=== PATIENT | male | born 1965 | race American Indian/Alaskan Native ===

== ENCOUNTER 2017-09-17 23:13 | Emergency (ER) | payer OTHER ==
[2017-09-18 00:25] LABS: Basophils # (Auto) 0.1 K/mm3 (0.0-0.1); Basophils % (Auto) 0.5 % (0.0-1.8); Eosinophils % (Auto) 0.2 % (0.0-4.3); Hemoglobin 10.7 gm/dl (11.8-15.2); Lymphocytes # (Auto) 2.3 K/mm3 (1.2-5.4); Lymphocytes % (Auto) 16.3 % (13.4-35.0); Mean Corpuscular HGB Conc 34 % (32-34); Mean Corpuscular Hemoglobin 30 pg (28-32); Mean Corpuscular Volume 90 fl (84-94); Monocytes # (Auto) 0.8 K/mm3 (0.0-0.8); Platelet Count 215 K/mm3 (140-440); Red Blood Count 3.57 M/mm3 (3.65-5.03); Red Cell Distribution Width 13.4 % (13.2-15.2)
[2017-09-18 00:42] LABS: Alanine Aminotransferase 11 units/L (7-56); Albumin 3.8 g/dL (3.9-5); BUN/Creatinine Ratio 26; Blood Urea Nitrogen 36 mg/dL (9-20); Calcium 9.3 mg/dL (8.4-10.2); Hemolysis Index 3; Lipase 44 units/L (13-60)
[2017-09-18] MEDS ORDERED: NACL 0.9% 1000 ML 1,000 ML IV ONE (00:51)
[2017-09-18] MEDS ORDERED: ZOFRAN IV ONE (00:51)
[2017-09-18] MEDS ORDERED: PROTONIX IV ONE (00:52)
--- NOTE | 2017-09-18 00:56 | Emergency Department Report ---
ED Abdominal Pain HPI - General Chief Complaint: Nausea/Vomiting/Diarrhea Stated Complaint: EMESIS Time Seen by Provider: 09/18/17 00:45 Source: EMS Mode of arrival: Ambulatory Limitations: No Limitations - History of Present Illness Initial Comments: Patient is 52 years old male with no significant past medical history, presented to the ER complaining of diffuse crampy abdominal pain associated with nausea and vomiting and diarrhea. Patient stated that he radiates foods 3 days ago that might be the cause for what he have now. Patient denied any fever no blood in the stool. MD Complaint: abdominal pain -: days(s) Location: diffuse Migration to: no migration Severity scale (0 -10): 0 Quality: cramping Associated Symptoms: nausea, vomiting, diarrhea - Related Data Allergies Allergy/AdvReac Type Severity Reaction Status Date / Time No Known Allergies Allergy Unverified 09/17/17 23:40 ED Review of Systems ROS: Stated complaint: EMESIS Other details as noted in HPI Comment: All other systems reviewed and negative Respiratory: denies: cough, orthopnea, shortness of breath, SOB with exertion, SOB at rest, wheezing Cardiovascular: denies: chest pain, palpitations, dyspnea on exertion, orthopnea Gastrointestinal: abdominal pain, nausea, vomiting, diarrhea. denies: constipation, hematemesis, melena, hematochezia Neurological: denies: headache, weakness, numbness ED Past Medical Hx - Past Medical History Previous Medical History?: No - Surgical History Past Surgical History?: No - Social History Smoking Status: Current Every Day Smoker Substance Use Type: Marijuana ED Physical Exam - General Limitations: No Limitations General appearance: alert, in no apparent distress - Head Head exam: Present: atraumatic, normocephalic, normal inspection - Eye Eye exam: Present: normal appearance, PERRL - ENT ENT exam: Present: normal exam, normal orophraynx, mucous membranes moist - Neck Neck exam: Present: normal inspection, full ROM. Absent: tenderness, meningismus, lymphadenopathy, thyromegaly - Respiratory Respiratory exam: Present: normal lung sounds bilaterally. Absent: respiratory distress, wheezes, rales, rhonchi, stridor, chest wall tenderness, accessory muscle use, decreased breath sounds, prolonged expiratory - Cardiovascular Cardiovascular Exam: Present: regular rate, normal rhythm, normal heart sounds - GI/Abdominal GI/Abdominal exam: Present: soft, normal bowel sounds. Absent: distended, tenderness, guarding, rebound, rigid, diminished bowel sounds, organomegaly, mass, bruit, pulsatile mass, hernia - Extremities Exam Extremities exam: Present: normal inspection, full ROM, normal capillary refill - Back Exam Back exam: Present: normal inspection, full ROM. Absent: tenderness, CVA tenderness (R), CVA tenderness (L), muscle spasm, paraspinal tenderness, vertebral tenderness - Neurological Exam Neurological exam: Present: alert, oriented X3, CN II-XII intact, normal gait - Skin Skin exam: Present: warm, intact, normal color ED Course Vital Signs 09/17/17 09/17/17 09/17/17 21:28 21:30 23:28 Temperature Pulse Rate 94 H Respiratory 17 Rate Blood Pressure 102/73 Blood Pressure [Left] O2 Sat by Pulse 96 96 100 Oximetry 09/17/17 09/17/17 09/17/17 23:30 23:34 23:41 Temperature 98.3 F Pulse Rate 106 H 96 H Respiratory 17 20 20 Rate Blood Pressure 102/73 102/73 Blood Pressure 102/73 [Left] O2 Sat by Pulse 100 100 98 Oximetry 09/17/17 09/18/17 09/18/17 23:46 00:00 00:15 Temperature Pulse Rate 102 H 98 H 98 H Respiratory 18 15 14 Rate Blood Pressure 91/67 96/61 91/67 Blood Pressure [Left] O2 Sat by Pulse 100 100 100 Oximetry 09/18/17 09/18/17 09/18/17 00:30 00:46 01:00 Temperature Pulse Rate Respiratory 22 13 22 Rate Blood Pressure 92/65 96/61 109/77 Blood Pressure [Left] O2 Sat by Pulse 99 100 100 Oximetry - Reevaluation(s) Reevaluation #1: 09/18/17 04:04 Patient stated that he is feeling much better. He still denying any abdominal pain. Advised patient to drink more fluid and follow up with his primary care physician in the next 2-3 days. I also advised him to return to the ER if his symptom is not improving ED Medical Decision Making - Lab Data Result diagrams: 09/18/17 00:01 09/18/17 00:01 Critical care attestation.: If time is entered above; I have spent that time in minutes in the direct care of this critically ill patient, excluding procedure time. ED Disposition Clinical Impression: Nausea vomiting and diarrhea, Hypokalemia Disposition: DC-01 TO HOME OR SELFCARE Is pt being admited?: No Condition: Stable Instructions: Acute Nausea and Vomiting (ED), Hypokalemia (ED) Referrals: PRIMARY CARE,MD [Primary Care Provider] - 3-5 Days
[2017-09-18] MEDS ORDERED: K-DUR PO ONE (04:00)
[2017-09-18] MEDS: KCL 10MEQ/100ML 10 MEQ/100 ML BAG IV SCH ×2 (05:07→06:26)
[2017-09-18] MEDS ORDERED: NACL 0.9% 1000 ML 1,000 ML ONE (06:49)
[2017-09-18 08:26] LABS: BUN/Creatinine Ratio 30; Blood Urea Nitrogen 30 mg/dL (9-20); Calcium 7.9 mg/dL (8.4-10.2); Hemolysis Index 4
[2017-09-18 09:13] VITALS: BP 120/74
== END 2017-09-18 09:14 | disposition home or self-care (01) ==
LOC: ED 23:13
DX: E87.6 Hypokalemia (principal); R11.2 Nausea with vomiting, unspecified; R19.7 Diarrhea, unspecified; F17.200 Nicotine dependence, unspecified, uncomplicated; F12.10 Cannabis abuse, uncomplicated
CPT/HCPCS: 36415; 80048; 80053; 83690; 85025; 96361; 96365; 96375; 99284; C9113; J2405; J3480; J7030